=== PATIENT | female | born 1985 | race African-American/Black ===

== ENCOUNTER 2016-10-29 19:00 | Emergency (ER) | payer OTHER, BC | END 2016-10-29 19:29 | disposition home or self-care (01) | LOC: ER 19:00 | DX: S39.012A Strain of muscle, fascia and tendon of lower back, initial encounter (principal); S29.012A Strain of muscle and tendon of back wall of thorax, initial encounter; R51 Headache; Z98.51 Tubal ligation status; V89.9XXA Person injured in unspecified vehicle accident, initial encounter | CPT/HCPCS: 72072; 72100; 99285 ==